=== PATIENT | female | born 1975 | race Caucasian/White ===

== ENCOUNTER 2019-03-24 13:20 | Emergency (ER) | payer SELFPAY ==
[~2019-03-24] VITALS: Ht 172.7 cm; Wt 58.1 kg
[~2019-03-24 13:20] MED LIST: IBUPROFEN600 MG ORAL; KEFLEX500 MG ORAL; NKM
--- NOTE | 2019-03-24 14:06 | NUR ---
ED Nurse Note: Pt came in from home due to bilateral knee pain. Pt slipped and fell on Mar 21, landed on knees. NO head trauma. Pain 8/10 at this time. AOx4, vital signs stable. NAD. Able to make needs known. Will cont to monitor.
--- NOTE | 2019-03-24 14:44 | Emergency Room Report ---
History of Present Illness General Chief Complaint: Multiple Trauma/Fall Source: Patient Present Illness HPI 43-year-old female presents to the emergency department complaining of 8 out of 10 severity pain, tenderness, swelling and bruising to the bilateral knees x3 days. Patient reports mechanical slip and fall in some water 3 days ago. Patient denies hitting her head she denies loss of consciousness. She denies midline neck or back pain. Patient reports pain is exacerbated upon ambulation however she states she is able to bear weight. 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 Patient denies paresthesias, loss of gross motor movements. Patient denies significant instability of the knees. Patient states that her primary care provider has examined her and was concerned about the amount of swelling but did not do imaging. Patient reports palpation exacerbates her pain she denies any aggravating or relieving factors. Patient reports she took one Aleve and one Motrin which did not provide relief. Allergies: Coded Allergies: No Known Allergies (Unverified , 03/29/15) Patient History Past Medical History: see triage record Past Surgical History: none Pertinent Family History: none Last Menstrual Period: feb 20 Now: No Reviewed Nursing Documentation: PMH: Agreed; PSxH: Agreed Nursing Documentation-PMH Past Medical History: No History, Except For Review of Systems All Other Systems: negative except mentioned in HPI Physical Exam Vital Signs Date Time Temp Pulse Resp B/P (MAP) Pulse Ox O2 Delivery O2 Flow Rate FiO2 03/24/19 13:54 98.2 80 19 150/94 (112) 97 Room Air Sp02 EP Interpretation: reviewed, normal General Appearance: no apparent distress, alert, GCS 15, non-toxic Head: normocephalic, atraumatic Eyes: bilateral eye normal inspection, bilateral eye PERRL ENT: hearing grossly normal, normal voice Neck: full range of motion Respiratory: lungs clear, normal breath sounds, speaking full sentences Cardiovascular #1: regular rate, rhythm Musculoskeletal: back normal, gait/station normal, normal range of motion - with some pain., tender - TTP anteriorly to bilateral knees, swelling noted. greater on the right than left, FROM, able to bear weight. No increased laxity. negative anterior and posterior drawer signs. there is bruising noted on the right knee anteriorly. Neurologic: alert, oriented x3, responsive, motor strength/tone normal, sensory intact, normal gait, speech normal, grossly normal Psychiatric: judgement/insight normal Skin: Ecchymosis/Bruising - anterior right knee Medical Decision Making SG Attestation Dr. Prajapati is my supervising Physician whom patient management has been discussed with. Diagnostic Impression: Primary Impression: Bilateral knee pain Qualified Codes: M25.561 - Pain in right knee; M25.562 - Pain in left knee Additional Impression: Bilateral knee effusions ER Course 43-year-old female presents to the emergency department complaining of 8 out of 10 severity pain, tenderness, swelling and bruising to the bilateral knees x3 days. Patient reports mechanical slip and fall in some water 3 days ago. Patient denies hitting her head she denies loss of consciousness. She denies midline neck or back pain. Patient reports pain is exacerbated upon ambulation however she states she is able to bear weight. 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 Patient denies paresthesias, loss of gross motor movements. Patient denies significant instability of the knees. Patient states that her primary care provider has examined her and was concerned about the amount of swelling but did not do imaging. Patient reports palpation exacerbates her pain she denies any aggravating or relieving factors. Patient reports she took one Aleve and one Motrin which did not provide relief. Ddx considered but are not limited to Fracture, dislocation, contusion, Sprain/ Strain/Spasm, meniscal injury, ligamental injury just to name a few Vital signs: are WNL, pt. is afebrile H&PE are most consistent with musculoskeletal injury will perform imaging to r/ o fractures/dislocations. ORDERS: - X-ray's of the bilateral knees, 3 views each - negative for fx, Dislocation , or significant soft tissue injury, per preliminary read in ED, and signed by SG Suazo, my supervising physician has reviewed, and agrees with my interpretation. ED INTERVENTIONS: - [place] PO -Dash wrap applied to the right knee by cardiopulmonary technician and eeg tech. Pt. remains neurovascularly intact. Dash wrap applied to the left knee by cardiopulmonary technician and eeg tech. Pt. remains neurovascularly intact. - Pt. declines crutches DISCHARGE: At this time pt. is stable for d/c to home. Will provide printed patient care instructions, and any necessary prescriptions. Care plan and follow up instructions have been discussed with the patient prior to discharge. Other X-Ray Diagnostic Results Other X-Ray Diagnostic Results #1: X-Ray ordered: Right knee # of Views/Limited Vs Complete: 3 View Indication: Pain EP Interpretation: Yes PA Xray: Interpretation reviewed, by supervising MD, and agrees with findings. Interpretation: no dislocation, no soft tissue swelling, no fractures Impression: No acute disease Electronically Signed by: Donita Suazo PA-C Other X-Ray Diagnostic Results #2: X-Ray ordered: Left knee # of Views/Limited Vs Complete: 3 View Indication: Pain EP Interpretation: Yes PA Xray: Interpretation reviewed, by supervising MD, and agrees with findings. Interpretation: no dislocation, no soft tissue swelling, no fractures Impression: No acute disease Electronically Signed by: Donita Suazo PA-C Last Vital Signs Date Time Temp Pulse Resp B/P (MAP) Pulse Ox O2 Delivery O2 Flow Rate FiO2 03/24/19 14:09 80 19 Room Air 03/24/19 13:54 98.2 150/94 (112) 97 Disposition: HOME, SELF-CARE Condition: Stable Scripts Ibuprofen* (MOTRIN*) 600 Mg Tablet 600 MG ORAL THREE TIMES A DAY, #30 TAB 0 Refills Prov: Donita Suazo 03/24/19 Hydrocodone Bit/Acetaminophen 5-325* (NORCO 5-325*) 1 Each Tablet 1 TAB ORAL Q6H PRN for For Pain, #12 TAB 0 Refills Prov: Donita Suazo 03/24/19 Patient Instructions: Contusion, [id number], Knee Effusion, Flju-[id number] Additional Instructions: Take medications as directed. Follow up with an AUT[employer] RENTAL SUPERVISOR in 3-5 days, even if your symptoms have resolved. If symptoms persist MRI may be required at the discretion of your PCP or Ortho Specialist. --Please review list of primary care clinics, if you do not already have a primary care provider who can give you an Orthopedic Referral. Return sooner to ED if new symptoms occur, or current symptoms become worse. Do not drink alcohol, drive, or operate heavy machinery while taking [place] as this may cause drowsiness. - Please note that this Emergency Department Report was dictated using [employer] installer technology software, occasionally this can lead to erroneous entry secondary to interpretation by the dictation equipment. Donita Suazo Mar 24, 2019 14:44
--- NOTE | 2019-03-24 15:01 | Diagnostic Imaging Report ---
Indication: Right knee Pain 3 views of the right knee were obtained. Findings: No acute fracture, malalignment, or joint effusion are identified. Impression: Negative for acute findings.
--- NOTE | 2019-03-24 15:02 | Diagnostic Imaging Report ---
INDICATION: Knee Pain COMPARISON: None 3 views of the left knee were obtained. FINDINGS: No acute fracture, malalignment, or joint effusion are identified. Impression: Negative for acute injury
[2019-03-24] MEDS ORDERED: HYDROcodone/Acetamin 5/325 tab ORAL ONE (15:15)
[2019-03-24] MEDS ORDERED: NORCO 5-325 TA1 EACH ORAL (15:20)
[2019-03-24] MEDS ORDERED: IBUPROFEN600 MG ORAL (15:20)
--- NOTE | 2019-03-24 15:25 | NUR ---
ER DISCHARGE NOTE: Patient is cleared to be discharged per CHAVA GONZALEZ, pt is aox4, on room air, with stable vital signs. pt was given dc and prescription instructions, pt was able to verbalize understanding, pt id band removed without complications. dary wrap applied as ordered. pt is able to ambulate with steady gait. pt took all belongings.
[2019-03-24 15:32] VITALS: BP 142/92
[2019-03-24 15:33] VITALS: BP 142/92
== END 2019-03-24 15:25 | disposition home or self-care (01) ==
LOC: EMR 14:45
DX: M25.561 Pain in right knee (principal); M25.562 Pain in left knee; M25.462 Effusion, left knee; M25.461 Effusion, right knee; M92.52 Juvenile osteochondrosis of tibia tubercle; W01.0XXA Fall on same level from slipping, tripping and stumbling without subsequent striking against object, initial encounter; Y93.9 Activity, unspecified; Y92.9 Unspecified place or not applicable
CPT/HCPCS: 99283